=== PATIENT | male | born 1990 | race Caucasian/White ===

== ENCOUNTER 2018-05-04 20:07 | Emergency (ER) | payer OTHER ==
[~2018-05-04] VITALS: Ht 180.3 cm; Wt 85.0 kg
[2018-05-04 20:20] VITALS: BP 113/86
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
--- NOTE | 2018-05-04 20:44 | NUR ---
REPORT CALLED TO CONNIE DUMONT RN.
--- NOTE | 2018-05-04 20:53 | NUR ---
REPORT GIVEN TO EILEEN BOX TRANSFERRED TO [facility]IA [facility] WITH C COLLAR IN PLACE
[2018-05-04] MEDS ORDERED: KETOROLAC 30 MG/1 ML ONE (20:58)
== END 2018-05-04 20:57 | disposition short-term general hospital (02) ==
LOC: ED 20:32
DX: S09.8XXA Other specified injuries of head, initial encounter (principal); S19.9XXA Unspecified injury of neck, initial encounter; S29.9XXA Unspecified injury of thorax, initial encounter; V99.XXXA Unspecified transport accident, initial encounter; Y93.89 Activity, other specified; Y92.89 Other specified places as the place of occurrence of the external cause; Y99.8 Other external cause status
CPT/HCPCS: 99283; 99285